=== PATIENT | female | born 2000 | race Caucasian/White ===

== ENCOUNTER 2022-03-03 15:46 | Outpatient (CLI) | payer OTHER ==
[~2022-03-03 15:46] MED LIST: BENTYL 20MG TAB20 MG PO; PRENATAL VITAM1 EAC3 PO; PRILOSEC OTC20 MG PO; REGLAN10 MG PO
[2022-03-03 16:34] LABS: RED BLOOD COUNT 4.09 M/UL (4.00-5.10); WHITE BLOOD COUNT 13.3 K/UL (4.5-11.0)
[2022-03-03 17:05] LABS: BUN/CREATININE RATIO 16 (0-10)
== END 2022-03-03 18:53 | disposition home or self-care (01) ==
LOC: GENOP 15:46
PROVIDERS: Obstetrics & Gynecology
DX: O16.3 Unspecified maternal hypertension, third trimester (principal); Z3A.36 36 weeks gestation of pregnancy
CPT/HCPCS: 80053; 81001; 82570; 83615; 84156; 84550; 85025

== ENCOUNTER 2022-03-06 05:12 | Inpatient (IN) | payer OTHER ==
[~2022-03-06] VITALS: Ht 162.6 cm; Wt 95.3 kg
[2022-03-06 06:06] LABS: HEMOGLOBIN 11.7 gm/dl (12.3-15.3); RED BLOOD COUNT 3.94 M/UL (4.00-5.10); WHITE BLOOD COUNT 13.7 K/UL (4.5-11.0)
[2022-03-06 06:27] LABS: BUN/CREATININE RATIO 15 (0-10)
[2022-03-06] MEDS ORDERED: COLACE100 MG PO (15:36)
[2022-03-06] MEDS ORDERED: IBUPROFEN600 MG PO (15:36)
[2022-03-07 06:45] LABS: HEMOGLOBIN 10.8 gm/dl (12.3-15.3)
== END 2022-03-08 12:00 | disposition home or self-care (01) | DRG 807 ==
LOC: OB 05:12
PROVIDERS: Obstetrics & Gynecology; ADMIT Obstetrics & Gynecology
PROC: 10H073Z Insertion of Monitoring Electrode into Products of Conception, Via Natural or Artificial Opening (ICD-10-PCS; 2022-03-06)
PROC: 10H07YZ Insertion of Other Device into Products of Conception, Via Natural or Artificial Opening (ICD-10-PCS; 2022-03-06)
PROC: 0HQ9XZZ Repair Perineum Skin, External Approach (ICD-10-PCS; 2022-03-06)
PROC: 10E0XZZ Delivery of Products of Conception, External Approach (ICD-10-PCS; principal; 2022-03-07)
PROC: 10907ZC Drainage of Amniotic Fluid, Therapeutic from Products of Conception, Via Natural or Artificial Opening (ICD-10-PCS; 2022-03-07)
DX: O13.4 Gestational [pregnancy-induced] hypertension without significant proteinuria, complicating childbirth (principal); Z37.0 Single live birth; O76 Abnormality in fetal heart rate and rhythm complicating labor and delivery; O99.324 Drug use complicating childbirth; Z3A.37 37 weeks gestation of pregnancy; O99.334 Smoking (tobacco) complicating childbirth; F17.210 Nicotine dependence, cigarettes, uncomplicated; O69.81X0 Labor and delivery complicated by cord around neck, without compression, not applicable or unspecified; Z90.49 Acquired absence of other specified parts of digestive tract; Z88.1 Allergy status to other antibiotic agents; Z88.0 Allergy status to penicillin; Z88.8 Allergy status to other drugs, medicaments and biological substances; Z28.310 Unvaccinated for COVID-19; Z82.49 Family history of ischemic heart disease and other diseases of the circulatory system; Z83.3 Family history of diabetes mellitus; Z83.2 Family history of diseases of the blood and blood-forming organs and certain disorders involving the immune mechanism; O70.0 First degree perineal laceration during delivery
CPT/HCPCS: 36415; 80053; 80307; 81001; 82570; 82800; 84156; 84550; 85014; 85018; 85025; J2590